=== PATIENT | male | born 1970 | race Caucasian/White ===

== ENCOUNTER 2020-06-08 11:14 | Outpatient (REF) | payer BC, SELFPAY ==
[2020-06-08 12:54] LABS: MANUAL DIFF FLAG NO
[2020-06-08 13:06] LABS: Basophils Percent Auto 0.7 % (0-2); Eosinophils Absolute Auto 0.1 X10*3/uL (0.0-0.4); Eosinophils Percent Auto 2.2 % (0-4); Hematocrit 46.4 % (42-52); Hemoglobin 16.1 g/dl (14.0-18.0); Imm Gran Abs Auto 0.02 X10*3/uL (0.00-0.03); Imm Gran Pct Auto 0.4 % (0.0-0.4); Lymphocytes Absolute Auto 1.8 X10*3/uL (1.2-4.9); Lymphocytes Percent Auto 31.8 % (20-40); Mean Corpuscular HGB Conc 34.7 g/dl (31.0-36.0); Mean Corpuscular Hemoglobin 33.8 pg (27.0-33.0); Mean Corpuscular Volume 97.5 fL (80-98); Mean Platelet Volume 9.9 fL (9.4-12.4); Monocytes Absolute Auto 0.5 X10*3/uL (0.1-1.2); Monocytes Percent Auto 8.5 % (2-11); Neutrophils Absolute Auto 3.1 X10*3/uL (2.0-8.3); Neutrophils Percent Auto 56.4 % (45-73); Platelet Count 257 X10*3/uL (160-400); Red Blood Count 4.76 X10*6/uL (4.60-5.80); Red Cell Distribution Width 12.2 % (11.0-16.0); White Blood Count 5.5 X10*3/uL (4.8-10.8)
[2020-06-08 18:22] LABS: Prostate Specific Antigen 0.48 ng/mL (<0.05-4.0)
[2020-06-08 18:24] LABS: Alanine Aminotransferase 29 U/L (0-40); Albumin Level 4.7 g/dL (3.5-5.0); Alkaline Phosphatase 69 U/L (39-117); Anion Gap 14 (12-20); Aspartate Amino Transferase 27 U/L (5-37); Bilirubin Total 0.6 mg/dL (0.0-1.0); Blood Urea Nitrogen 16 mg/dL (9-16); Calcium 9.7 mg/dL (8.4-10.2); Carbon Dioxide 29 mmol/L (22-29); Chloride 103 mmol/L (96-108); Cholesterol 262 mg/dL; Estimated Glomerular Filt Rate > 60; Glucose Fasting 100 mg/dL (60-99); HDL Cholesterol 63 mg/dL; LDL Cholesterol Calculated 179 mg/dl; Potassium 4.6 mmol/L (3.3-5.1); Sodium 141 mmol/L (135-145); Total Protein 7.5 g/dL (6.5-8.0); Triglycerides 101 mg/dL
== END 2020-06-08 11:15 | disposition home or self-care (01) ==
LOC: HO.MANLDS 11:14
PROVIDERS: PCP Internal Medicine; Visit Provider Internal Medicine
DX: Z13.220 Encounter for screening for lipoid disorders (principal); Z12.5 Encounter for screening for malignant neoplasm of prostate
CPT/HCPCS: 36415; 80053; 80061; 84153; 85025

== ENCOUNTER 2020-06-08 12:48 | Outpatient (REF) | payer BC, SELFPAY ==
--- NOTE | ~2020-06-08 | XR_ITS ---
EXAMINATION: XR CERVICAL SPINE CLINICAL INFORMATION: DJD COMPARISON: None TECHNIQUE: 6 views of the cervical spine, inclusive of flexion and extension views, were obtained. FINDINGS: There is mild curvature of the mid cervical spine to the left and lower cervical and proximal thoracic spine to the right. Bone alignment is otherwise normal. No fracture or dislocation is seen. There is mild degenerative spondylosis at C6-C7. Disc spaces are normal. There is right-sided neural foraminal narrowing from bony osteophyte at C3-C4 and C4-C5. Left-sided neural foramen are patent. Prevertebral soft tissues are normal. XR/XR cervical spine min 6V IMPRESSION: Mild curvature of the cervical spine. Mild degenerative spondylosis at C6-C7. Right-sided neuroforaminal narrowing at C3-C4 and C4-C5 from bony osteophyte.
== END 2020-06-08 12:49 | disposition home or self-care (01) ==
LOC: HO.XRAY 12:48
PROVIDERS: PCP Internal Medicine; Visit Provider Internal Medicine
DX: M50.30 Other cervical disc degeneration, unspecified cervical region (principal)
CPT/HCPCS: 72052

== ENCOUNTER 2022-01-17 09:08 | Outpatient (REF) | payer BC, SELFPAY ==
[2022-01-17 11:20] LABS: MANUAL DIFF FLAG NO
[2022-01-17 11:36] LABS: Basophils Absolute Auto 0.1 X10*3/uL (0.0-0.2); Basophils Percent Auto 0.8 % (0-2); Eosinophils Absolute Auto 0.1 X10*3/uL (0.0-0.4); Hematocrit 47.6 % (42.0-52.0); Hemoglobin 16.3 g/dl (14.0-18.0); Imm Gran Abs Auto 0.03 X10*3/uL (0.00-0.03); Imm Gran Pct Auto 0.5 % (0.0-0.4); Lymphocytes Absolute Auto 1.7 X10*3/uL (1.2-4.9); Mean Corpuscular HGB Conc 34.2 g/dl (31.0-36.0); Mean Corpuscular Hemoglobin 33.5 pg (27.0-33.0); Mean Corpuscular Volume 97.7 fL (80.0-98.0); Monocytes Absolute Auto 0.5 X10*3/uL (0.1-1.2); Monocytes Percent Auto 7.8 % (2-11); Neutrophils Absolute Auto 3.8 x10*3/uL (2.0-8.3); Neutrophils Percent Auto 61.9 % (45-73); Platelet Count 274 X10*3/uL (160-400); Red Blood Count 4.87 X10*6/uL (4.60-5.80); Red Cell Distribution Width 11.9 % (11.0-16.0); White Blood Count 6.2 X10*3/uL (4.8-10.8)
[2022-01-17 12:27] LABS: Alanine Aminotransferase 17 U/L (0-40); Albumin Level 4.4 g/dL (3.5-5.0); Alkaline Phosphatase 66 U/L (39-117); Anion Gap 14 (12-20); Aspartate Amino Transferase 17 U/L (5-37); Bilirubin Total 0.8 mg/dL (0.0-1.0); Blood Urea Nitrogen 15 mg/dL (9-16); Calcium 9.7 mg/dL (8.4-10.2); Carbon Dioxide 29 mmol/L (22-29); Chloride 102 mmol/L (96-108); Cholesterol 224 mg/dL; Estimated Glomerular Filt Rate > 60; Glucose Random 109 mg/dL (60-115); HDL Cholesterol 51 mg/dL; LDL Cholesterol Calculated 138 mg/dl; Potassium 4.7 mmol/L (3.3-5.1); Prostate Specific Antigen 0.57 ng/mL (<0.05-4.0); Sodium 140 mmol/L (135-145); Triglycerides 175 mg/dL; Vitamin D 25-OH Total 33.7 ng/mL (>30)
[2022-01-23 13:16] LABS: Testosterone, Total 502 ng/dL (250-1100)
== END 2022-01-17 09:09 | disposition home or self-care (01) ==
LOC: HO.MANLDS 09:08
PROVIDERS: Visit Provider Internal Medicine
DX: Z00.00 Encounter for general adult medical examination without abnormal findings (principal); Z12.5 Encounter for screening for malignant neoplasm of prostate
CPT/HCPCS: 36415; 80053; 80061; 82306; 84153; 84403; 85025

== ENCOUNTER 2024-01-10 10:05 | Outpatient (REF) | payer BC, SELFPAY ==
[2024-01-13 17:59] LABS: Lyme Abs Screen <0.90 index
[2024-01-17 16:13] LABS: A. Phagocytophilum Ab IgG <1:64 (<1:64); A. Phagocytophilum Ab IgM <1:20 (<1:20); E. Chaffeensis Ab IgG <1:64 (<1:64); E. Chaffeensis Ab IgM <1:20 (<1:20)
== END 2024-01-10 10:06 | disposition home or self-care (01) ==
LOC: HO.MANLDS 10:05
PROVIDERS: Visit Provider Physician Assistant
DX: A69.20 Lyme disease, unspecified (principal)
CPT/HCPCS: 36415; 86617; 86618; 86666

== ENCOUNTER 2024-05-05 08:29 | Outpatient (REF) | payer BC, SELFPAY ==
--- OUTSIDE RECORDS SUMMARY | 2024-05-05 08:56 | XMS_ITS | Data Portability ---
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 REVIEW OF PRIOR EXTERNAL NOTES/RESULTS , ORDERING OF TEST(S) CATEGORY 2. INCLUDE WHO THE HISTORIAN IS AND RELATION TO PT AND WHY PT IS UNABLE TO GIVE COMPLETE HISTORY ELEMENT 3: RISK (LOW) PROVIDER MUST THOROUGHLY DOCUMENT ALL OF THE ELEMENTS COVERED Not available 06/08/2020 11:04:51 Plan of Treatment Reminders Order Date Submit Date Provider Last Modified By Organization Details Last Modified Time Details Appointments None recorded. Lab CBC w/ auto diff 2024 025 [facility], [address] [place] [address], [address], 5 15:14:52 PSA, serum or plasma 2024 025 [facility], [address] [place] [address], [address], 5 15:14:52 lipid panel, blood 2024 025 [facility], [address] [place] [address], [address], 5 15:14:52 vitamin D, 25-hydroxy , total, serum 2024 025 [facility], [address] [place] [address], [address], 5 15:14:52 CMP, serum or plasma 2024 025 [facility], [address] [place] [address], [address], 5 15:14:52 CMP, serum or plasma 2021 [facility], [address] [place] [address], [address], 12:19:33 lipid panel, blood 2021 [facility], [address] [place] [address], [address], 16:37:07 CBC w/ auto diff 2021 [facility], [address] [place] [address], [address], 16:37:07 PSA, serum or plasma 2021 [facility], [address] [place] [address], [address], 16:37:07 vitamin D, 25-hydroxy , total, serum 2021 [facility], [address] [place] [address], [address], 16:37:07 testostero ne, total, serum 2021 [facility], [address] [place] [address], [address], 2 11:47:48 lipid panel, serum 2020 021 [facility] Not available 12:13:10 CMP, serum or plasma 2020 021 [facility] Not available 12:13:10 CBC w/ auto diff 2020 [facility] Not available 12:13:11 PSA, serum or plasma 2020 021 [facility] Not available 12:13:11 Referral None recorded. Procedures None recorded. Surgeries None recorded. Imaging CT, coronary calcium score 2021 [facility], [address] [place], [address], 08:28:58 MRI, cervical spine, w/o contrast 2020 021 [facility], [address] [place], [address], 08:35:48 XR, cervical spine 2020 [facility], [address] [place], [address], 17:26:45 Medication Orders tadalafil 20 mg tablet 2024 025 [id number], [address] [place], [address], 5 15:15:38 Patient TargetsNo targets recorded. Patient Instructions Encounter Date Encounter Id Patient Instructions Last Modified By Organization Details Last Modified Time 06/08/2020 [id number] cervical disc disease: care instructions Not available 06/08/2020 11:04:03 Reason for Referral None Reported. Results Created Date Observation Date Name Description Value Unit Range Abnormal Flag Note LastModifiedBy Organization Detail LastModifiedTime 06/09/19 21 06/08/2020 XR, cervi shital spine No observ ation record ed. [facility] (Medical Records) [address] [place], [address], 06/16/2020 15:59:27 01/18/20 22 01/17/2022 CT, coron noe calci um score No observ ation record ed. [facility] [address] [place], [address], 03/10/2024 15:02:48 06/12/19 23 06/04/2022 US, echoc ardio gram No observ ation record ed. [facility] [place] [address] [place], [address], 03/10/2024 15:02:48 Result Notes None recorded. Problems Name Problem SNOMED Code Status Onset Date Resolution Date Notes Provider Name and Address Organization Details Recorded Time Bleeding internal hemorrhoid s 94849886 Active 2020 Abida stevens [facility] 15:28:54 Bleeding external hemorrhoid s 16807511 Active 2020 Abida stevens [facility] 15:29:01 Neck pain 36675153 Active 2020 Abida stevens [facility] 15:29:29 Cervical radiculiti s 11981567 Active 2020 Abida stevens [facility] 15:29:35 Pain in thoracic spine 600832047 Active 2020 Abida stevens [facility] 15:31:05 Aneurysm of thoracic aorta 279325659 Active 2021 Herson Cabrales DO [address] [place] [address], [address], [facility] 2 20:22:55 Gastro-eso phageal reflux disease with esophagiti s 616154385 Active 2023 Herson Cabrales DO [address] [place], [address], [facility] 4 14:14:48 Lyme disease 48443154 Active 2023 SAUMYA PINZON [address] [place], [address], [facility] 4 09:16:45 Hiatal hernia 84073013 Active 2024 Herson Cabrales, DO [address] [place], [address], [facility] 5 14:57:22 Erectile dysfunctio n 722352975 Active 2024 Herson Cabrales, DO [address] [place] [address], [address], [facility] 5 15:14:39 Problem Notes None recorded. Procedures Surgical History Date Name Laterality Status Provider Name and Address Organization Details Recorded Time 4 Colonoscopy completed Efra Sosa [facility] 04/07/2024 16:41:19 Imaging Results Imaging Date Name Status LastModified by Organization Details LastModified Time 06/08/2020 XR, cervical spine completed [facility] (Medical Records) [address] [place], [address], 06/16/2020 15:59:27 01/17/2022 CT, coronary calcium score [email or web address] [address] [place], [address], 03/10/2024 15:02:48 06/04/2022 US, echocardiogram completed [email or web address] [place] [address] [place], [address], 03/10/2024 15:02:48 Procedure Notes None recorded. Medical Equipment None Reported. Allergies Allergen ID Allergen Name Allergen Category Reaction Reaction Severity Criticality Documentation Date Start Date Code Code System Note Provider Name and Address Organization Details Recorded Time 4398 [employer] environme nt,medica tion Not available Not available Not available 06/06/2020 57028 6 RxNorm Abida stevens [facility] 1 15:29:53 4399 soy environme nt,food,m edication Not available Not available Not available 06/06/2020 06947 UNK Abida stevens [facility] 15:30:04 Medications Name Sig Start Date Stop Date Status Note LastModified by Organization Details LastModified Time Prescription - Prior Authorization Request active Not Available Not Available Not Available doxycycline monohydrate 100 mg capsule 04/07 completed Not Available Not Available Not Available tadalafil 20 mg tablet TAKE 1 TABLET BY MOUTH EVERY DAY FOR 10 DAYS active Not Available Not Available No t Available Vitals Date Recorded Body weight Body mass index (BMI) Body height Heart rate Oxygen saturation Oxygen saturation in Arterial blood by Pulse oximetry Systolic blood pressure Diastolic blood pressure Provider Name and Address Organization Details Last Updated DateTime 1 56798.9 5 g 27.4 kg/m2 189.23 cm 85 /min 99 % 99 % 122 mm[Hg] 84 mm[Hg] Herson Cabrales, DO [address] [place], [address] 1 10:30:40 Date Recorded Body height Body mass index (BMI) Body weight Heart rate Oxygen saturation Oxygen saturation in Arterial blood by Pulse oximetry Systolic blood pressure Diastolic blood pressure Provider Name and Address Organization Details Last Updated DateTime 2 189.23 cm 27.8 kg/m2 78918.6 g 73 /min 98 % 98 % 134 mm[Hg] 84 mm[Hg] Herson Cabrales, [address] [place], [address] 2 16:00:13 Date Recorded Body height Body mass index (BMI) Body weight Heart rate Oxygen saturation Oxygen saturation in Arterial blood by Pulse oximetry Systolic blood pressure Diastolic blood pressure Provider Name and Address Organization Details Last Updated DateTime 5 187.96 cm 28.1 kg/m2 79992.7 3 g 82 /min 98 % 98 % 130 mm[Hg] 80 mm[Hg] Melida Rodrigues [facility] 14:41:07 Date Recorded Systolic blood pressure Diastolic blood pressure Provider Name and Address Organization Details Last Updated DateTime 03/10/2024 107 mm[Hg] 79 mm[Hg] Herson Cabrales, [address] [place] [address], [place], [address], [facility] 03/10/2024 15:02:20 Social History Question Answer Notes LastModified by Organizat ion Details LastModified Time Tobacco Smoking Status Never Smoker Abida Buchanan rodney, [facility] 06/06/2020 15:30:20 What Is Your Level Of Alcohol Consumption? Occasional [email or web address] Information not available 06/06/2020 What Was The Date Of Your Most Recent Tobacco Screening? 03/10/2024 [email or web address] Information not available 03/10/2024 Do You Or Have You Ever Used Any Other Forms Of Tobacco Or Nicotine? No Information not available 12/26/2021 Sex: Unknown Functional Status None recorded. Mental Status None recorded. Family History Relationship Description Onset Age of this Age Resolved Age Notes LastModified by Organization Details LastModified Time Father Marion's esophagus [email or web address] Not available 2024 14:34:39 Maternal Grandfather Myocardial infarction [email or web address] Not available 06/06 15:36:18 Maternal Grandfather Smoker [email or web address] Not available 03/10 14:34:39 Maternal Grandfather Moderate drinker [email or web address] Not available 2024 14:34:39 Paternal Grandfather Malignant neoplasm of urinary bladder [email or web address] Not available 2024 14:34:39 Mother Arthritis [email or web address] Not availa ble 06/08/2020 12:08:56 Medical History No medical history recorded. Past Encounters Encounter ID Performer Location Encounter Start Date Encounter Closed Date Diagnosis/Indication Diagnosis SNOMED-CT Code Diagnosis ICD10 Code Diagnosis Note [id number] Herson Cabrales DO [facility] [address] [facility],[place] [address] 06/08/2020 10:19:20 06/08/2020 11:15:41 Degeneration of cervical intervertebral disc 29644883 M50.30 having numbness and weakness down the right arm Cholesterol screening 27 0948503 Z13.220 [id number] Herson Cabrales DO [facility] [address] [facility],[place] [address] 12/26/2021 15:51:36 12/27/2021 11:40:04 Active or passive immunization 752176040 Z23 patient advised he is due for tdap & flu shot Adult heal th examination 135380208 Z00.00 Family his tory of premature coronary heart disease 166173675 Z82.49 [id number] Herson Cabrales DO [facility] [address] [facility],[place] [address] 03/10/2024 14:31:48 03/10/2024 16:03:25 Gastro-esophageal reflux disease with esophagitis 093047425 K21.00 prn use Hiatal hernia 35154938 K 44.9 stable Adult heal th examination 150569740 Z00.00 doing grea t we will chk lAB Erectile dysfunction 860 404074 F52.21 will try Health Concerns Section Related Observation LastModified by Organization Detai ls LastModified Time None Recorded Concern Status LastModified by Organization Details LastModified Time None Recorded Advance Directives Directive None Recorded Payers Encounter Date Sequence Insurance Name Policy Number Policy Muñoz Covered Member ID Muñoz Member ID Guarantor Name 06/08/2020 1 [place] [id number] 1 Mario S Coleman [id number] Mario Coleman 12/26/2021 1 [place] [id number] 1 Mario S Coleman [id number] Mario Coleman 03/10/2024 1 [place] [id number] 1 Mario S Coleman [id number] Mario Coleman Notes Date Note Type Note Provider Name a nd Address Organization Details Recorded Time 1 text/html here for rechk and is doing well no issues exercise eats well has hx of c spine prob with excessive G forces etc also hemorrhoids 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 Herson Cabrales, DO [address] [place], [address], [facility] 06/08/2020 11:08:32 2 text/html Annual WellnessReported bypatient.Diet and Nutrition:healthy diet Fracture Risk:no history of fractures; no recent explained fracture; no sudden unexplained fractures; no previous musculoskeletal injuries Physical Activity:exercises on a regular basis; recent increase in physical activity; good physical condition Additional Lifestyle Factors:no tobacco use; no alcohol intake; stopped drinking alcohol Depression Risk:never feels sad, empty, or tearful; no loss of interest in activities; no significant changes in weight; no sleep disturbances or insomnia; no agitation; no loss of energy; no feelings of worthlessness or guilt; no thoughts of suicide; no history of depression; no history of mood disorders Hearing:no loss of hearing Vision:no vision problems Herson Cabrales DO [address] [place], [address], [facility] 12/26/2021 16:46:57 5 text/html here for declan relates that he has been doing ok overallhas had a egd and had esophagitis with hiatal herniawas tx with omeprazole for 3 mo and rechk was fine and now just takes prnhas gained some weightcolonoscopy done too and this wa s goodhad a couple int hemorr bp 107 sys then had coffee and went to 130 then later in the day had 122 sys Herson Cabrales DO [address] [place], [address], [facility] 03/10/2024 15:53:17
--- OUTSIDE RECORDS SUMMARY | 2024-05-05 08:56 | XMS_ITS | Data Portability ---
Author Organization [facility] , [facility]Unsigned Documents Address [address] [facility] [place] [address] Assessment No assessment recorded. Plan of Treatment Reminders Order Date Submit Date Provider Last Modified By Organization Details Last Modified Time Details Appointments None record ed. Lab None record ed. Referral None record ed. Procedures None record ed. Surgeries None record ed. Imaging None record ed. Medication Orders None record ed. Patient TargetsNo targets recorded. Patient InstructionsNo instructions recorded. Reason for Referral None Reported. Medical Equipment None Reported. Allergies No known drug allergies Medications Name Sig Start Date Stop Date Status Note LastModified by Organization Details LastModified Time doxycycline monohydrate 100 mg capsule active Not Available Not Available Not Available tadalafil 20 mg tablet TAKE 1 TABLET BY MOUTH EVERY DAY FOR 10 DAYS active Not Available Not Available No t Available Vitals None Recorded Social History None recorded. Functional Status None recorded. Mental Status None recorded. Family History Nothing Reported. Medical History No medical history recorded. Past Encounters Encounter ID Performer Location Encounter Start Date Encounter Closed Date Diagnosis/Indication Diagnosis SNOMED-CT Code Diagnosis ICD10 Code Diagnosis Note [id number] MD ROSA ISELA Yi [address] [address] 04/04/2023 12:11:34 04/04/2023 15:45:20 Administrative reason for encounter [id number] Z02.9 [id number] MD ROSA ISELA Yi July [address] [address] 10/24/2023 09:55:22 10/24/2023 11:45:48 Administrative reason for encounter 841395276 Z02.9 Oct EKG [id number] Omid Davis MD [facility] [address] [place] [address],[facility] [address] [place] [address] 04/16/2024 10:23:22 04/16/2024 12:46:12 Administrative reason for encounter 503021300 Z02.9 Oct EKG Health Concerns Section Related Observation LastModified by Organization Detai ls LastModified Time None Recorded Concern Status LastModified by Organization Details LastModified Time None Recorded Advance Directives Directive None Recorded Payers Encounter Date Sequence Insurance Name Policy Number Policy Muñoz Covered Member ID Muñoz Member ID Guarantor Name 04/04/2023 1 *SELF PAY* Mitchell rothman Raphine 10/24/2023 1 *SELF PAY* Mitchell rothman Raphine 04/16/2024 1 *SELF PAY* Mitchell rothman Raphine
[2024-05-06 09:38] LABS: Lyme Abs Screen <0.90 index
[2024-05-07 18:13] LABS: A. Phagocytophilum Ab IgG <1:64 (<1:64); A. Phagocytophilum Ab IgM <1:20 (<1:20); E. Chaffeensis Ab IgG <1:64 (<1:64); E. Chaffeensis Ab IgM <1:20 (<1:20)
== END 2024-05-05 08:30 | disposition home or self-care (01) ==
LOC: HO.MANLDS 08:29
PROVIDERS: Visit Provider Physician Assistant
DX: A69.20 Lyme disease, unspecified (principal)
CPT/HCPCS: 36415; 86617; 86618; 86666

== ENCOUNTER 2024-08-04 10:10 | Outpatient (REF) | payer BC, SELFPAY ==
--- OUTSIDE RECORDS SUMMARY | 2024-08-04 11:40 | XMS_ITS | Data Portability ---
Author Organization [facility] , [facility]Unsigned Documents Address [address] [facility] [place] [address] Assessment No assessment recorded. Plan of Treatment [...] SNOMED-CT Code Diagnosis ICD10 Code Diagnosis Note [id number] MD ROSA ISELA Yi [address] [address] 04/04/2023 12:11:34 04/04/2023 15:45:20 Administrative reason for encounter [id number] Z02.9 [id number] MD ROSA ISELA Yi July [address] [address] 10/24/2023 09:55:22 10/24/2023 11:45:48 Administrative reason for encounter 822519468 Z02.9 Oct EKG [id number] Omid Davis MD [facility] - [facility] [address] [place] [address],[facility] [address] [place] [address] 04/16/2024 10:23:22 04/16/2024 12:46:12 Administrative reason for encounter 062993835 Z02.9 Oct EKG Health Concerns Section Related Observation LastModified by Organization Detai ls LastModified Time None Recorded Concern Status LastModified by Organization Details LastModified Time None Recorded Advance Directives Directive None Recorded Payers Insurance Date Sequence Insurance Name Policy Number Policy Muñoz Covered Member ID Muñoz Member ID Guarantor Name 04/04/2023 1 *SELF PAY* Mitchell Garcia
[2024-08-04 13:28] LABS: MANUAL DIFF FLAG NO
[2024-08-04 13:31] LABS: Basophils Percent Auto 0.5 % (0-2); Eosinophils Absolute Auto 0.1 X10*3/uL (0.0-0.4); Eosinophils Percent Auto 1.5 % (0-4); Hematocrit 45.2 % (42.0-52.0); Hemoglobin 15.9 g/dl (14.0-18.0); Imm Gran Abs Auto 0.02 X10*3/uL (0.00-0.03); Imm Gran Pct Auto 0.3 % (0.0-0.4); Lymphocytes Absolute Auto 1.8 X10*3/uL (1.2-4.9); Lymphocytes Percent Auto 30.8 % (20-40); Mean Corpuscular HGB Conc 35.2 g/dl (31.0-36.0); Mean Corpuscular Hemoglobin 34.3 pg (27.0-33.0); Mean Corpuscular Volume 97.4 fL (80.0-98.0); Mean Platelet Volume 9.8 fL (9.4-12.4); Monocytes Absolute Auto 0.4 X10*3/uL (0.1-1.2); Monocytes Percent Auto 6.6 % (2-11); Neutrophils Absolute Auto 3.6 x10*3/uL (2.0-8.3); Neutrophils Percent Auto 60.3 % (45-73); Platelet Count 254 X10*3/uL (160-400); Red Blood Count 4.64 X10*6/uL (4.60-5.80); Red Cell Distribution Width 12.5 % (11.0-16.0)
[2024-08-04 13:58] LABS: Estimated Average Glucose 100 mg/dL; Hemoglobin A1c % 5.1 % (<6.0)
[2024-08-04 14:21] LABS: Prostate Specific Antigen 0.55 ng/mL (<0.05-4.0)
[2024-08-04 14:22] LABS: Albumin Level 4.6 g/dL (3.5-5.0); Alkaline Phosphatase 66 U/L (39-117); Anion Gap 11 (12-20); Aspartate Amino Transferase 29 U/L (5-37); Bilirubin Total 0.5 mg/dL (0.0-1.0); Blood Urea Nitrogen 13 mg/dL (9-16); Calcium 9.7 mg/dL (8.4-10.2); Carbon Dioxide 27 mmol/L (22-29); Chloride 109 mmol/L (96-108); Cholesterol 241 mg/dL (<200); Estimated Glomerular Filt Rate > 60; Glucose Random 121 mg/dL (60-115); HDL Cholesterol 55 mg/dL (>40); LDL Cholesterol Calculated 167 mg/dL (<100); Potassium 4.1 mmol/L (3.3-5.1); Sodium 143 mmol/L (135-145); Thyroid Stimulating Hormone 0.99 uIU/mL (0.32-4.0); Total Protein 7.3 g/dL (6.5-8.0); Triglycerides 96 mg/dL (<150)
[2024-08-04 14:35] LABS: Alanine Aminotransferase 42 U/L (0-40)
== END 2024-08-04 10:11 | disposition home or self-care (01) ==
LOC: HO.MANLDS 10:10
PROVIDERS: Visit Provider Internal Medicine
DX: R10.31 Right lower quadrant pain (principal); Z12.5 Encounter for screening for malignant neoplasm of prostate; Z13.1 Encounter for screening for diabetes mellitus; Z13.6 Encounter for screening for cardiovascular disorders
CPT/HCPCS: 36415; 80053; 80061; 83036; 84153; 84443; 85025